=== PATIENT | female | born 1970 | race Caucasian/White ===

== ENCOUNTER 2018-09-26 09:11 | Observation (INO) | payer MEDICAID ==
[~2018-09-26] VITALS: Ht 168.9 cm; Wt 110.0 kg
[~2018-09-26 09:11] MED LIST: ALPR2TAB2 PO; BUPIVACAINE/PF 0.5% ONE; BUPR100T11 PO; CEFAZOLIN 1,000 MG ONE; DEXAMETHASONE 4 MG/ML, 1ML ONE; DOXE50CA PO; EPINEPHRINE 1 MG/ML, 1ML ONE; FENT1PAT77 TD; FENTANYL PF 100 MCG/2ML ONE; KETOROLAC 60 MG/2 ML ONE; LOVA10TA PO; MELO15TA24 PO; MIDAZOLAM 1 MG/ML, 2ML ONE; MIRT30TA4 PO; MULT-717 PO; NALO4SPR NS; OXYC30TA66 PO; OXYCODONE PO; PROPOFOL 10 MG/ML, 20ML ONE; QUET400T PO; ROCURONIUM 10MG/ML,5ML ONE; ROPIvacaine/PF 0.2%, 20 ML ONE; SERT100T5 PO; TIZA4TAB PO; TRANEXAMIC ACID 100 MG/ML, 10ML ONE
[2018-09-26 09:53] VITALS: BP 111/80
[2018-09-26] MEDS ORDERED: ACETAMINOPHEN 650 MG/20.3 ML UDC PO PRN (10:00)
[2018-09-26] MEDS ORDERED: GABAPENTIN 300 MG CAPSULE PO ONE (10:00)
[2018-09-26] MEDS ORDERED: BISACODYL 10 MG SUPP PR PRN (10:00)
[2018-09-26] MEDS ORDERED: SENNA/DOCUSATE TABLET PO PRN (10:00)
[2018-09-26] MEDS ORDERED: CEFAZOLIN PMX 1GM/50ML 50 ML IVPB SCH (10:00)
[2018-09-26] MEDS ORDERED: ONDANSETRON 4 MG TABLET PO PRN (10:00)
[2018-09-26] MEDS ORDERED: ALUMINUM/MAG/SIMETHICONE 30 ML UDC PO PRN (10:00)
[2018-09-26] MEDS ORDERED: ACETAMINOPHEN 500 MG TABLET PO ONE (10:00)
[2018-09-26] MEDS ORDERED: MAGNESIUM HYDROXIDE 8%, 30ML UDC PO PRN (10:00)
[2018-09-26] MEDS ORDERED: OXYcodone IR 5MG TABLET PO PRN (10:00)
[2018-09-26] MEDS ORDERED: PROMETHAZINE 25 MG/ML, 1ML IM PRN (10:00)
[2018-09-26] MEDS ORDERED: PROMETHAZINE 12.5 MG SUPP PR PRN (10:00)
[2018-09-26] MEDS ORDERED: HYDROmorphone 1 MG/ML, 1ML IV PRN (10:00)
[2018-09-26] MEDS ORDERED: ONDANSETRON 2MG/ML, 2ML IV PRN (10:00)
[2018-09-26] MEDS ORDERED: DIPHENHYDRAMINE 50 MG CAPSULE PO PRN (10:00)
[2018-09-26] MEDS: LACTATED RINGERS 1,000 ML IV SCH ×2 (10:22→10:26)
[2018-09-26] MEDS ORDERED: FENTANYL PF 100 MCG/2ML IV PRN (10:30)
[2018-09-26] MEDS ORDERED: hydrALAzine 20 MG/ML, 1ML IV PRN (10:30)
[2018-09-26] MEDS ORDERED: DIAZEPAM 5 MG/ML, 2ML IVPush PRN (10:30)
[2018-09-26] MEDS ORDERED: MORPHINE SULFATE 4 MG/ML, 1ML IVPush PRN (10:30)
[2018-09-26] MEDS ORDERED: LABETALOL 5MG/ML, 20ML IV PRN (10:30)
[2018-09-26] MEDS ORDERED: METOPROLOL 1 MG/ML, 5ML IV PRN (10:30)
[2018-09-26] MEDS ORDERED: METOCLOPRAMIDE 5 MG/ML, 2ML IV PRN (10:30)
[2018-09-26] MEDS ORDERED: TRANEXAMIC ACID 1,000 MG in SODIUM CHLORIDE 0.9% 100 ML IVPB ONE (12:00)
[2018-09-26] MEDS ORDERED: FENTANYL PF 100 MCG/2ML ONE (12:02)
[2018-09-26] MEDS ORDERED: ETOMIDATE 20 MG/10 ML ONE (12:02)
[2018-09-26] MEDS ORDERED: ONDANSETRON 2MG/ML, 2ML ONE (12:35)
[2018-09-26] MEDS ORDERED: OXYcodone 5 MG/5 ML ORAL.SOL UDC ONE (13:22)
[2018-09-26] MEDS ORDERED: HYDROmorphone 2 MG/ML, 1ML ONE ×2 (13:22→16:59)
[2018-09-26] MEDS: OXYcodone 5 MG/5 ML ORAL.SOL UDC PO PRN ×2 (13:26→13:56)
[2018-09-26] MEDS: HYDROmorphone 2 MG/ML, 1ML IVPush PRN ×2 (13:27→13:37)
[2018-09-26] MEDS ORDERED: MEPERIDINE/PF 50 MG/ML ONE (13:31)
[2018-09-26] MEDS: MEPERIDINE/PF 25MG/0.5ML IVPush PRN ×2 (13:33→13:50)
[2018-09-26 14:25] VITALS: BP 131/85
[2018-09-26] MEDS: D5%-0.45NACL+KCL 20MEQ 1,000 ML IV SCH (15:18)
[2018-09-26] MEDS ORDERED: ALPRazolam 1MG TABLET PO PRN (15:30)
[2018-09-26] MEDS ORDERED: NEOSTIGMINE 1 MG/ML, 10ML ONE (15:34)
[2018-09-26] MEDS ORDERED: GLYCOPYRROLATE 0.2MG/1ML, 5ML ONE (15:34)
[2018-09-26] MEDS: ASPIRIN 81 MG TABLET EC PO SCH (18:01)
[2018-09-26] MEDS: OXYcodone IR 30 MG TABLET PO SCH (18:01)
[2018-09-26] MEDS: CEFAZOLIN PMX 1GM/50ML 50 ML IVPB SCH (19:51)
[2018-09-26 20:38] VITALS: BP 106/73
[2018-09-26] MEDS ORDERED: QUETIAPINE 100MG TABLET PO SCH (21:00)
[2018-09-26] MEDS ORDERED: DOXEPIN 25 MG CAPSULE PO SCH (21:00)
[2018-09-26] MEDS ORDERED: MIRTAZAPINE 15 MG TABLET PO SCH (21:00)
[2018-09-26] MEDS: OxyconTIN ER 15 MG TAB.ER PO SCH (21:03)
[2018-09-26] MEDS: DOCUSATE 100 MG CAPSULE PO SCH (21:03)
[2018-09-26] MEDS: TIZANIDINE 4MG TABLET PO SCH (21:07)
[2018-09-27 00:34] VITALS: BP 96/62
[2018-09-27] MEDS: D5%-0.45NACL+KCL 20MEQ 1,000 ML IV SCH ×2 (02:31→07:22)
[2018-09-27] MEDS: OXYcodone IR 30 MG TABLET PO SCH ×3 (04:00→11:20)
[2018-09-27 04:09] VITALS: BP 113/74
[2018-09-27] MEDS: CEFAZOLIN PMX 1GM/50ML 50 ML IVPB SCH (04:20)
[2018-09-27] MEDS ORDERED: DEXAMETHASONE 4 MG/ML, 1ML IVPush SCH (06:00)
[2018-09-27] MEDS: ASPIRIN 81 MG TABLET EC PO SCH (06:37)
[2018-09-27] MEDS: DOCUSATE 100 MG CAPSULE PO SCH (07:28)
[2018-09-27 08:07] VITALS: BP 91/59
[2018-09-27] MEDS ORDERED: SERTRALINE 100MG TABLET PO SCH (09:00)
[2018-09-27] MEDS ORDERED: LOVASTATIN 10 MG TABLET PO SCH (09:00)
[2018-09-27] MEDS ORDERED: TAMSULOSIN 0.4 MG CAP.ER.24H PO SCH (09:00)
[2018-09-27] MEDS ORDERED: ASPI81TA45 PO (09:00)
[2018-09-27] MEDS ORDERED: DOCU-131 PO (09:02)
[2018-09-27] MEDS ORDERED: ONDA4TAB13 SL (09:03)
[2018-09-27] MEDS ORDERED: CELE200C PO (09:04)
[2018-09-27] MEDS ORDERED: TRAM50TA2 PO (09:05)
[2018-09-27] MEDS ORDERED: OXYC5TAB2 PO (09:07)
[2018-09-27] MEDS: OxyconTIN ER 15 MG TAB.ER PO SCH (09:18)
[2018-09-27] MEDS: TIZANIDINE 4MG TABLET PO SCH (09:18)
[2018-09-27] MEDS ORDERED: KETOROLAC 30 MG/1 ML IV SCH (10:00)
[2018-09-27 11:10] VITALS: BP 117/70
== END 2018-09-27 12:15 | disposition home or self-care (01) ==
LOC: OUT 09:11 → ORIP 09:36 → 4NOR 14:18 → DCLOUNGE 09-27 12:05
PROVIDERS: ADMIT Orthopaedic Surgery; ATTEND Orthopaedic Surgery
DX: M17.11 Unilateral primary osteoarthritis, right knee (principal); R53.1 Weakness; J45.909 Unspecified asthma, uncomplicated; M19.90 Unspecified osteoarthritis, unspecified site
CPT/HCPCS: 27447; 36415; 73560; 81025; 85014; 85018; 96365; 96366; 96375; 97110; 97161; 97165; C1713; C1776; G0378; J0171; J0690; J1100; J1170; J1885; J2175; J2250; J2405; J2704; J2710; J2795; J3010; J3480; J3490; J7120

== ENCOUNTER → 2020-10-16 | Outpatient (CLI) | payer MEDICAID ==
[~2020-10-16] MED LIST changes: +ACET-76 PO; +ASPI81TA45 PO; +BREX2TAB PO; -BUPIVACAINE/PF 0.5% ONE; -CEFAZOLIN 1,000 MG ONE; +CELE200C PO; -DEXAMETHASONE 4 MG/ML, 1ML ONE; +DOCU-131 PO; -EPINEPHRINE 1 MG/ML, 1ML ONE; -FENTANYL PF 100 MCG/2ML ONE; -KETOROLAC 60 MG/2 ML ONE; -MIDAZOLAM 1 MG/ML, 2ML ONE; +ONDA4TAB13 SL; +OXYC5TAB2 PO; -PROPOFOL 10 MG/ML, 20ML ONE; -ROCURONIUM 10MG/ML,5ML ONE; -ROPIvacaine/PF 0.2%, 20 ML ONE; +SERT100T32 PO; -SERT100T5 PO; -TIZA4TAB PO; +TIZA4TAB2 PO; +TRAM50TA2 PO; -TRANEXAMIC ACID 100 MG/ML, 10ML ONE; +ZOLP10TA PO
== END | disposition home or self-care (01) ==
LOC: STAR 14:08
PROVIDERS: ATTEND Orthopaedic Surgery
DX: Z20.828 Contact with and (suspected) exposure to other viral communicable diseases (principal); M75.122 Complete rotator cuff tear or rupture of left shoulder, not specified as traumatic; M75.22 Bicipital tendinitis, left shoulder; M25.512 Pain in left shoulder
CPT/HCPCS: 87635

== ENCOUNTER 2020-10-22 13:06 | Day surgery (SDC) | payer MEDICAID ==
[~2020-10-22] VITALS: Ht 170.2 cm; Wt 90.0 kg
[2020-10-22] MEDS ORDERED: CHLORHEXIDINE 15 ML UDC MM STA (13:19)
[2020-10-22] MEDS ORDERED: BUPIVACAINE/PF 0.25% ONE (13:23)
[2020-10-22] MEDS ORDERED: EPINEPHRINE 1 MG/ML, 1ML ONE (13:23)
[2020-10-22] MEDS ORDERED: CLINDAMYCIN 150 MG/ML, 6ML ONE (13:23)
[2020-10-22] MEDS ORDERED: LACTATED RINGERS 1,000 ML IV SCH (13:30)
[2020-10-22] MEDS ORDERED: ACETAMINOPHEN 500 MG TABLET PO ONE (13:30)
[2020-10-22] MEDS ORDERED: MIDAZOLAM 1 MG/ML, 2ML ONE (14:00)
[2020-10-22] MEDS ORDERED: FENTANYL PF 100 MCG/2ML ONE ×5 (14:00→16:57)
[2020-10-22] MEDS ORDERED: KETOROLAC 30 MG/1 ML ONE (14:52)
[2020-10-22] MEDS ORDERED: LIDOCAINE-MPF 2% ,5ML ONE (14:52)
[2020-10-22] MEDS ORDERED: DEXAMETHASONE 4 MG/ML, 5ML ONE (14:53)
[2020-10-22] MEDS ORDERED: PROPOFOL 10 MG/ML, 20ML ONE (16:04)
[2020-10-22] MEDS ORDERED: ONDANSETRON 2MG/ML, 2ML ONE (16:04)
[2020-10-22] MEDS ORDERED: SUCCINYLCHOLINE 20 MG/ML, 10ML ONE (16:04)
[2020-10-22] MEDS ORDERED: CEFAZOLIN 1,000 MG ONE (16:04)
[2020-10-22] MEDS ORDERED: HYDROmorphone 1 MG/ML, 1ML INJ ONE (16:34)
[2020-10-22] MEDS ORDERED: OXYcodone 5 MG/5 ML ORAL.SOL UDC ONE (16:35)
[2020-10-22] MEDS: FENTANYL PF 100 MCG/2ML IV PRN ×4 (16:39→17:07)
[2020-10-22] MEDS ORDERED: HYDROmorphone 2 MG/ML, 1ML ONE (16:40)
[2020-10-22] MEDS: HYDROmorphone 1 MG/ML, 1ML INJ IVPush PRN ×6 (16:54→17:24)
[2020-10-22] MEDS ORDERED: OXYcodone 5 MG/5 ML ORAL.SOL UDC PO PRN (17:00)
[2020-10-22] MEDS ORDERED: LABETALOL 5MG/ML, 20ML IV PRN (17:00)
[2020-10-22] MEDS ORDERED: EPHEDRINE 50 MG/ML, 1ML IVPush PRN (17:00)
[2020-10-22] MEDS ORDERED: PROMETHAZINE 25 MG/ML, 1ML IVPush PRN (17:00)
[2020-10-22] MEDS ORDERED: ONDANSETRON 2MG/ML, 2ML IVPush PRN (17:00)
[2020-10-22] MEDS ORDERED: hydrALAzine 20 MG/ML, 1ML ONE (17:02)
[2020-10-22] MEDS: hydrALAzine 20 MG/ML, 1ML IV PRN ×2 (17:05→17:27)
[2020-10-22] MEDS ORDERED: LABETALOL 5MG/ML, 20ML ONE (17:32)
[2020-10-22] MEDS ORDERED: LORazepam 2 MG/ML, 1ML IVPush PRN (18:00)
== END 2020-10-22 18:58 | disposition home or self-care (01) ==
LOC: OUT 13:06
PROVIDERS: ATTEND Orthopaedic Surgery
DX: S46.012A Strain of muscle(s) and tendon(s) of the rotator cuff of left shoulder, initial encounter (principal); S43.432A Superior glenoid labrum lesion of left shoulder, initial encounter; M75.22 Bicipital tendinitis, left shoulder; M75.42 Impingement syndrome of left shoulder; M94.212 Chondromalacia, left shoulder; M65.812 Other synovitis and tenosynovitis, left shoulder; M25.712 Osteophyte, left shoulder; G89.18 Other acute postprocedural pain; F32.9 Major depressive disorder, single episode, unspecified; M06.9 Rheumatoid arthritis, unspecified; J45.909 Unspecified asthma, uncomplicated; M79.7 Fibromyalgia; Z79.1 Long term (current) use of non-steroidal anti-inflammatories (NSAID); Z79.899 Other long term (current) drug therapy; Z87.891 Personal history of nicotine dependence; Z88.7 Allergy status to serum and vaccine; X58.XXXA Exposure to other specified factors, initial encounter; Y93.89 Activity, other specified; Y92.89 Other specified places as the place of occurrence of the external cause; Y99.8 Other external cause status
CPT/HCPCS: 23430; 29823; 29826; 64415; C1713; J0171; J0330; J0360; J0690; J1100; J1170; J1885; J2250; J2405; J2704; J3010; J7120